=== PATIENT | female | born 1970 | race Caucasian/White ===

== ENCOUNTER → 2019-11-25 11:54 | Outpatient (BNVA) | payer OTHER, SELFPAY | PROVIDERS: Family Provider Nurse Practitioner; PCP Nurse Practitioner; Visit Provider Nurse Practitioner Family | DX: R05 Cough (principal); J20.9 Acute bronchitis, unspecified | CPT/HCPCS: 87804 ==

== ENCOUNTER 2020-04-28 16:06 | Observation (INO) | payer OTHER, SELFPAY ==
[2020-04-28] VITALS (8 sets, daily range): BP systolic 131–175; BP diastolic 70–108; PULSE 76–104; RESP 11–18; TEMP 36.8; O2SAT 94–97; BMI 37.1
--- NOTE | 2020-04-28 16:57 | XRR_ITS ---
PROCEDURE INFORMATION: Exam: XR Chest, 1 View Exam date and time: 04/28/2020 5:20 PM Age: 49 years old Clinical indication: Condition or disease; Other: HTN; Patient HX: Dizzy weak TECHNIQUE: Imaging protocol: XR of the chest Views: 1 view. COMPARISON: CR Chest 1 [place] [id number] 03/31/2017 5:59 PM FINDINGS: Lungs: Unremarkable. No consolidation. Pleural space: Unremarkable. No pleural effusion. No pneumothorax. Heart/Mediastinum: Unremarkable. No cardiomegaly. Bones/joints: Unremarkable. XR/XR chest 1V portable [id number] IMPRESSION: No acute findings.
--- NOTE | 2020-04-28 16:57 | CTR_ITS ---
PROCEDURE INFORMATION: Exam: CT Head Without Contrast Exam date and time: 04/28/2020 4:58 PM Age: 49 years old Clinical indication: Dizziness and numbness / parasthesia; Right; Additional info: Symptoms of acute stroke TECHNIQUE: Imaging protocol: Computed tomography of the head without contrast. Radiation optimization: All CT scans at this facility use at least one of these dose optimization techniques: automated exposure control; mA and/or kV adjustment per patient size (includes targeted exams where dose is matched to clinical indication); or iterative reconstruction. Other technique: STROKE PROTOCOL was implemented. COMPARISON: CT head wo con* [id number] 05/07/2018 3:40 PM RADIATION DOSE METRICS: Total DLP (mGy-cm): 900.69 FINDINGS: Brain: Normal. No hemorrhage. Unremarkable white matter. No mass effect. Ventricles: Normal. No ventriculomegaly. Bones/joints: Unremarkable. No acute fracture. Sinuses: Visualized sinuses are unremarkable. No fluid levels. Mastoid air cells: Visualized mastoid air cells are well aerated. Soft tissues: Unremarkable. CT/CT head wo con* [id number] IMPRESSION: No acute intracranial abnormality. ASSESSMENT: ASPECTS ([place] Stroke Program Early CT Score) is 10. Radiation Dose CTDIVOL = (mGy): DLP = 900.69 (mGy-cm)
--- NOTE | 2020-04-28 16:57 | ECG_ITS ---
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 Measurements Intervals [place] Rate: 100 P: 26 OH: 140 QRS: 31 QRSD: 94 T: 48 QT: 353 QTc: 456 Interpretive Statements SINUS TACHYCARDIA ABNORMAL RHYTHM ECG Compared to ECG 04/01/2017 06:25:20 Sinus rhythm no longer present Electronically Signed On 04-28-2020 21:07:48 CDT by Halima Castro M.D. [email or web address] [email or web address] [email or web address] [email or web address] [email or web address] Oncology/store/NU/[id number] f
--- NOTE | 2020-04-28 16:59 | W.ED.NEUROSD ---
HPI - Neuro Symptoms/Deficit General: Chief Complaint: Neuro Symptoms/Deficit Stated Complaint: high bp Time Seen by Provider: 04/28/20 16:25 Source: patient Mode of arrival: ambulatory Limitations: no limitations History of Present Illness: HPI Narrative: 49-year-old female has a history of high blood pressure. She states 2 hours ago started having some blurry vision and feeling dizzy when she walked. She states she had a blood pressure checked and it was quite high. She denies any one-sided weakness. Patient is able ambulate here but states that she gets up and walks she does feel dizzy. She has no physical difficulties here. Denies any worsening. Factor Onset (ago): hour(s) Associated symptoms: Reports vertigo; Deny chest pain, nausea or vomiting Review of Systems Const: Denies: fever(s), chills, body aches or change in appetite Eyes: Denies: blurry vision or eye discomfort ENMT: Denies: throat pain or dental pain Card: Denies: chest pain Resp: Denies: dyspnea GI: Denies: abdominal pain, nausea, vomiting or diarrhea : Denies: dysuria Musc: Denies: neck pain or back pain Skin/Breast: Denies: rash Neuro: Reports: dizziness and vertigo Psych: Denies: depression Cecil/Lymph: Denies: easy bruising All/Imm: Denies: urticaria PFS ED PFSH: Social History (Updated 11/25/19 @ 11:49 by Lizbeth Ribeiro LPN) Smoking and tobacco status: current every day smoker cigarettes Packs smoked per day: 0.5 Alcohol intake: never Lives independently: Yes Household members: spouse Housing: House Marital status: History of recent travel: No Physical Exam Const: COMMON NORMALS: no acute distress, patient oriented x3 and healthy appearing HENMT: COMMON NORMALS: normocephalic and atraumatic HEAD & SCALP: normocephalic and atraumatic Eye: COMMON NORMALS: Equal, round and reactive pupils present and EOMs intact bilaterally PUPIL: Yes Equal, round and reactive pupils present Neck/C-Spine: COMMON NORMALS: full ROM and supple Chest: COMMONS NORMALS: normal inspection of the chest and normal palpation of entire chest wall Resp: COMMON NORMALS: normal respiratory effort, No retractions, No use of accessory muscles and clear to auscultation bilaterally AUSCULTATION: clear to auscultation bilaterally Cardio: COMMON NORMALS: regular rate, regular rhythm and No murmurs present (Cardio) RATE: regular rate RHYTHM: regular rhythm GI: COMMON NORMALS: Normal to inspection, nondistended, normoactive bowel sounds present, Soft to palpation, non-tender and no masses PALPATION: Yes Soft to palpation Extremity: COMMON NORMALS: normal to inspection and full ROM Neuro: COMMON NORMALS: patient oriented x3, moves all extremities and no focal motor deficits Psych: COMMON NORMALS: mental status grossly normal, Normal thought process present and cooperative THOUGHT PROCESS: Normal thought process present Skin: COMMON NORMALS: no rashes or lesions noted and no wounds GENERAL SKIN EXAM: no rashes or lesions noted Course Vital Signs: Vital signs: Vital Signs Temperature 98.2 F 04/28/20 16:49 Pulse Rate 102 H 04/28/20 16:49 Respiratory Rate 14 04/28/20 16:49 Blood Pressure 175/108 04/28/20 16:49 Pulse Oximetry 97 04/28/20 16:49 MDM - Neuro Symptoms/Deficit MDM Narrative: Medical decision making narrative: Patient presents with a likely TIA. Patient symptoms now have completely resolved. Patient was evaluated by Dr. Albert who feels she is not a TPA candidate. He recommended admission for TIA work-up. I spoke to Dr. kuo and will admit. Patient currently has no complaints and her blood pressure is 146/99. Lab Data: Labs: Lab Results 04/28/20 04/28/20 04/28/20 Range/Units 17:09 17:14 17:14 WBC 9.9 (4.0-10.0) 10^3/ uL RBC 5.69 H (4.1-5.3) 10^6/u L Hgb 13.9 (11.5-15.3) g/dL Hct 45.6 (37.0-47.0) % MCV 80.1 L (81-99) fL MCH 24.4 L (28.0-34.0) pg MCHC 30.5 (30.0-36.0) g/dL RDW 15.8 H (12.1-15.1) % Plt Count 307 (130-400) 10^3/c mm MPV 10.7 H (7.4-10.4) fL Neut % (Auto) 69.6 % Lymph % (Auto) 22.8 % Treasure % (Auto) 4.2 % Eos % (Auto) 2.0 % Baso % (Auto) 0.9 % Neut # (Auto) 6.85 (1.8-7.7) 10^3/u L Lymph # (Auto) 2.3 (0.8-4.8) 10^3/u L Treasure # (Auto) 0.4 (0.2-0.9) 10^3/u L Eos # (Auto) 0.2 (0.0-0.8) 10^3/u L Baso # (Auto) 0.1 (0.0-0.1) 10^3/u L Nucleated RBC % (a uto) 0 % Nucleated RBCs # 0.0 /100WBC PT 12.00 L (12.1-14.9) SECO NDS INR 0.86 (0.8-1.2) APTT 30.8 (23.9-36.7) SECO NDS Sodium (136-145) mmol/L Potassium (3.5-5.1) mmol/L Chloride (98-107) mmol/L Carbon Dioxide (22-29) mmol/L Anion Gap (5-19) BUN (6-20) mg/dL Creatinine (0.5-0.9) mg/dL GFR Calculation (90-130) mL/min Glucose (65-115) mg/dL POC Glucose 107 (70-110) mg/dL Calculated Osmolal ity (285-295) mOsm/k g Calcium (8.5-10.5) mg/dL Total Bilirubin (0.15-1.2) mg/dL AST (0-32) U/L ALT (0-33) U/L Alkaline Phosphata se (35-105) IU/L Total Protein (6.6-8.7) g/dL Albumin (3.5-5.2) g/dL Globulin (1.3-4.6) g/dL 04/28/20 Range/Units 17:14 WBC (4.0-10.0) 10^3/ uL RBC (4.1-5.3) 10^6/u L Hgb (11.5-15.3) g/dL Hct (37.0-47.0) % MCV (81-99) fL MCH (28.0-34.0) pg MCHC (30.0-36.0) g/dL RDW (12.1-15.1) % Plt Count (130-400) 10^3/c mm MPV (7.4-10.4) fL Neut % (Auto) % Lymph % (Auto) % Treasure % (Auto) % Eos % (Auto) % Baso % (Auto) % Neut # (Auto) (1.8-7.7) 10^3/u L Lymph # (Auto) (0.8-4.8) 10^3/u L Treasure # (Auto) (0.2-0.9) 10^3/u L Eos # (Auto) (0.0-0.8) 10^3/u L Baso # (Auto) (0.0-0.1) 10^3/u L Nucleated RBC % (a uto) % Nucleated RBCs # /100WBC PT (12.1-14.9) SECO NDS INR (0.8-1.2) APTT (23.9-36.7) SECO NDS Sodium 138 (136-145) mmol/L Potassium 3.9 (3.5-5.1) mmol/L Chloride 102 (98-107) mmol/L Carbon Dioxide 24 (22-29) mmol/L Anion Gap 15.9 (5-19) BUN 14 (6-20) mg/dL Creatinine 0.7 (0.5-0.9) mg/dL GFR Calculation 89.3 L (90-130) mL/min Glucose 102 (65-115) mg/dL POC Glucose (70-110) mg/dL Calculated Osmolal ity 282 L (285-295) mOsm/k g Calcium 9.6 (8.5-10.5) mg/dL Total Bilirubin 0.2 (0.15-1.2) mg/dL AST 14 (0-32) U/L ALT 21 (0-33) U/L Alkaline Phosphata se 115 H (35-105) IU/L Total Protein 7.9 (6.6-8.7) g/dL Albumin 4.7 (3.5-5.2) g/dL Globulin 3.2 (1.3-4.6) g/dL Imaging Data^: CT Head: Radiologist's impression: [address] [place] [address] CT Scan Report Signed Patient: Jeannette Dior Unit #: [id number] : 1970 Age/Sex: 49 / F ADM Date: 04/28/20 Loc: ER Room/Bed: Attending Dr: Ordering Provider/Ordering MD: Jarred Goldstein MD Date of Service: 04/28/20 Procedure(s): CT head wo con* [id number] Accession Number(s): [id number] Report Number: [id number] PROCEDURE INFORMATION: Exam: CT Head Without Contrast Exam date and time: 04/28/2020 4:58 PM Age: 49 years old Clinical indication: Dizziness and numbness / parasthesia; Right; Additional info: Symptoms of acute stroke TECHNIQUE: Imaging protocol: Computed tomography of the head without contrast. Radiation optimization: All CT scans at this facility use at least one of these dose optimization techniques: automated exposure control; mA and/or kV adjustment per patient size (includes targeted exams where dose is matched to clinical indication); or iterative reconstruction. Other technique: STROKE PROTOCOL was implemented. COMPARISON: CT head wo con* [id number] 05/07/2018 3:40 PM RADIATION DOSE METRICS: Total DLP (mGy-cm): 900.69 FINDINGS: Brain: Normal. No hemorrhage. Unremarkable white matter. No mass effect. Ventricles: Normal. No ventriculomegaly. Bones/joints: Unremarkable. No acute fracture. Sinuses: Visualized sinuses are unremarkable. No fluid levels. Mastoid air cells: Visualized mastoid air cells are well aerated. Soft tissues: Unremarkable. CT/CT head wo con* [id number] IMPRESSION: No acute intracranial abnormality. EKG Data^: EKG 1: Attestation: I personally reviewed and interpreted this EKG as follows: EKG interpretation date: 04/28/20 EKG interpretation time: 17:12 Interpretation: sinus tach hr [address] or t wave abnormalities qrs 94 qtc 410 Discharge Plan Discharge Patient Disposition: Admitted As Inpatient Admit Provider: Thi Domingo Clinical Impression: Transient cerebral ischemia Qualifiers: Transient cerebral ischemia type: unspecified Qualified Code(s): G45.9 - Transient cerebral ischemic attack, unspecified Hypertension Qualifiers: Hypertension type: unspecified Qualified Code(s): I10 - Essential (primary) hypertension Condition: Stable Referrals: Tae Bryant FNP-C [Primary Care Provider] - Coding Level of Care Code ED Scout Sniper for [facility] Fwd Exam Comprehensive
[2020-04-28 17:22] LABS: Glucose Point of Care 107 mg/dL (70-110)
[2020-04-28 17:29] LABS: Basophils # 0.1 10^3/uL (0.0-0.1); Basophils % 0.9 %; Eosinophils # 0.2 10^3/uL (0.0-0.8); Hematocrit 45.6 % (37.0-47.0); Hemoglobin 13.9 g/dL (11.5-15.3); Lymphocytes # 2.3 10^3/uL (0.8-4.8); Lymphocytes % 22.8 %; Mean Corpuscular HGB Conc 30.5 g/dL (30.0-36.0); Mean Corpuscular Hemoglobin 24.4 pg (28.0-34.0); Mean Corpuscular Volume 80.1 fL (81-99); Mean Platelet Volume 10.7 fL (7.4-10.4); Monocytes # 0.4 10^3/uL (0.2-0.9); Monocytes % 4.2 %; Neutrophils # 6.85 10^3/uL (1.8-7.7); Neutrophils % 69.6 %; Nucleated Red Blood Cells % 0 %; Platelet Count 307 10^3/cmm (130-400); Red Blood Count 5.69 10^6/uL (4.1-5.3); Red Cell Distribution Width 15.8 % (12.1-15.1); White Blood Count 9.9 10^3/uL (4.0-10.0)
--- NOTE | 2020-04-28 17:29 | PM.SAN ---
Stroke Alert Activation ED Arrival Date: 04/28/20 Stroke Alert Activation Date: 04/28/20 Stroke MD @ Bedside Date: 04/28/20 Stroke MD @ Bedside Time: 18:15 NIH Stroke Scale Time: 18:20 NIH Stroke Scale Score: NIH Stroke Scale Score: 0 Stroke Alert Data/Treatment CT Impression: unremarkable tPA Contraindication: tPA Contraindication: Treatment not indcated (exam normal) Other Information: She had acute onset of visual blurring, hypertension and vertigo about 2 hours ago which resolved. This may have represented a posterior circulation TIA. Her symptoms have essentially totally resolved and her examination is normal at this time. She is not a candidate for thrombolytics given her normal exam and essentially resolved symptoms. She feels a 'little blurry' and a little off balance. but is able to ambulate normally and is not ataxic. I have recommended observation and a TIA workup. She presently takes aspirin (excedrin) daily for chronic headache. She should start statin with goal LDL <70, have a vascular workup with MRI, echo and doppler, A1c, and Lipid profile. She has high probability for MARCIANO and should eventually have a sleep study. She may benefit from outpatient headache consultation and preventative treatment. I have counselled her regarding smoking cessation and blood pressure monitoring. Critical Care Time Critical Care Time: less than 30 mins Coding Level of Care Code Acute Assembly Stock Supervisor for Corrine Moore
[2020-04-28 17:38] LABS: INR 0.86 (0.8-1.2)
[2020-04-28 17:39] LABS: Partial Thromboplastin Time 30.8 SECONDS (23.9-36.7)
[2020-04-28 17:44] LABS: Alanine Aminotransferase 21 U/L (0-33); Albumin Level 4.7 g/dL (3.5-5.2); Alkaline Phosphatase 115 IU/L (35-105); Anion Gap 15.9 (5-19); Aspartate Amino Transferase 14 U/L (0-32); Blood Urea Nitrogen 14 mg/dL (6-20); Calcium 9.6 mg/dL (8.5-10.5); Carbon Dioxide 24 mmol/L (22-29); Chloride 102 mmol/L (98-107); Globulin 3.2 g/dL (1.3-4.6); Glomerular Filtration Rate 89.3 mL/min (90-130); Glucose 102 mg/dL (65-115); Osmolality Calculated 282 mOsm/kg (285-295); Potassium 3.9 mmol/L (3.5-5.1); Sodium 138 mmol/L (136-145); Total Bilirubin 0.2 mg/dL (0.15-1.2); Total Protein 7.9 g/dL (6.6-8.7)
--- NOTE | 2020-04-28 18:41 | PM.HP ---
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 Her NIH score was 0 at the time of presentation to the ED. She was evaluated by neurologist Dr. Albert urgently in the ED. Not felt to be a candidate for TPA at this present time. She is currently being admitted to observation for a TIA work-up. She denies any current complaints at this time. Denies any history of fever cough shortness of breath or chest pain. Review of Systems General: Reports: 10 or more systems reviewed and unremarkable except in HPI and below Const: Denies: fever(s), chills or body aches Eyes: Denies: change in vision, blurry vision or photophobia ENMT: Reports: hoarseness; Denies: throat pain, enlarged tonsils, odynophagia or nasal congestion Card: Denies: chest pain, palpitations, irregular heart rhythm, edema, swelling of feet/ankles, lightheadedness, pre-syncope, dyspnea on exertion or orthopnea Resp: Denies: dyspnea, productive cough, non-productive cough, wheezing, stridor, pain on inspiration, change in phlegm color, hemoptysis or chest congestion GI: Denies: abdominal pain, nausea, vomiting, hematemesis, coffee ground emesis, dysphagia, heartburn, diarrhea, constipation, GI cramping, change in stool character, hematochezia or melena : Denies: flank pain, difficulty voiding, dysuria, urinary frequency, urinary urgency, urinary hesitancy or hematuria Musc: Denies: neck pain, back pain, extremity pain, joint swelling, joint warmth or deformity Neuro: Denies: headache(s), numbness in extremities, weakness in extremities, sensory changes, difficulty walking, frequent falls, dizziness, vertigo, behavioral changes, Slurred speech present or seizure-like activity Psych: Denies: anxiety, depression, suicidal ideation or homicidal ideation Endo: Denies: polyuria, polydipsia, tired all the time, cold intolerance or hot flashes Cecil/Lymph: Denies: easy bruising or easy bleeding Medications/Allergies Home Medications Medication Instructions Recorded Confirmed Last Taken Type No Known Home Medications 04/28/20 04/28/20 Unknown History cerdnwr-atpljedzwlfha-iytrimgw 2 tab PO Q4H PRN 04/28/20 04/28/20 04/28/20 History [Excedrin Migraine] Allergies Allergy/AdvReac Type Severity Reaction Status Date / Time Penicillins Allergy Unknown Verified 04/28/20 17:21 PFSH Acute PFSH: Social History Smoking and tobacco status: current every day smoker cigarettes Packs smoked per day: 0.5 Alcohol intake: never Lives independently: Yes Household members: spouse Housing: House Marital status: History of recent travel: No Vitals/I&O/Wt Last Vital Signs Temp 98.2 F 04/28/20 16:49 Pulse 102 H 04/28/20 16:49 Resp 14 04/28/20 16:49 BP 175/108 04/28/20 16:49 Pulse Ox 97 04/28/20 16:49 Weight last 48 hrs Weight 101.333 kg Physical Exam Narrative: EXAM NARRATIVE: GEN: Awake, alert and oriented, no acute distress CVS: S1S2 N RS: CTA B/L Abd: Soft, nt/nd , bs+ DEVELOPMENT SPEC: no focal neuro deficits at this time Data : 04/28/20 17:14 04/28/20 17:14 A&P Assessment and plan (1) Transient cerebral ischemia: Status: Acute Qualifiers: Transient cerebral ischemia type: unspecified Qualified Code(s): G45.9 - Transient cerebral ischemic attack, unspecified (2) Hypertension: Status: Acute Qualifiers: Hypertension type: unspecified Qualified Code(s): I10 - Essential (primary) hypertension Additional A&P Information Admit to [facility] for close observation on telemetry. CT head without any acute intracranial abnormality. We will initiate a TIA work-up. Check HbA1c and lipid panel MRI of the head in the morning. Echocardiogram and carotid Doppler. Alternate cause of her symptoms may have been migraine for which patient takes Fioricet at home. Telemetry monitoring over the next 24 hours. Currently blood pressure noted to be 175 systolic. Reports taking no medications at home for the hypertension. Will initiate amlodipine if blood pressure consistently above SBP of 180. For now allow some degree of permissive hypertension. Full code DVT prophylaxis: SCDs. Attestations Medical Necessity Statement*: Admit to observation, anticipate less than 2 midnight admission for work-up of TIA. Coding Level of Care Code Acute Printing Gray Cloth Tender for Corrine Moore Diagnoses Transient cerebral ischemia G45.9 Transient cerebral ischemia type: unspecified Hypertension I10 Hypertension type: unspecified
[2020-04-28] MEDS: ondansetron 2 mg/ML SDV 2 mL 4 MG IVP (20:07)
[2020-04-28] MEDS: morphine 4 mg/mL SDV 1 mL 1 MG IVP (20:07)
[2020-04-28 20:11] LABS: Estmated Average Glucose 131; Hemoglobin A1C 6.2 % (4.0-6.0)
[2020-04-28 20:36] LABS: Add Urine Microscopic? NO
[2020-04-28 20:48] LABS: Bilirubin Urine Neg (NEGATIVE); Blood Urine Neg (Negative); Glucose Urine UA Norm (Normal); Ketones Urine Negative (Negative); Leukocyte Esterase Urine Negative (Negative); Nitrate Urine Negative (Negative); Protein Urine Neg (Negative); Urine Appearance Clear (CLEAR); Urine Color Straw (Yellow); Urobilinogen Urine Norm (Negative); pH Urine 5 (5-7)
[2020-04-28 20:54] LABS: Amphetamines Screen Urine Negative (Negative); Barbiturates Screen Urine Negative (Negative); Benzodiazepines Screen Urine Negative (Negative); Cocaine Screen Urine Negative (Negative); Opiate Screen Urine Negative (Negative); PCP Screen Urine Negative (Negative); THC Screen Urine Negative (Negative)
[2020-04-28 21:15] LABS: Glucose Point of Care 119 mg/dL (70-110)
[2020-04-28 22:38] LABS: Cholesterol 259 mg/dL (0-200); HDL Cholesterol 37 mg/dL (60-100); LDL Cholesterol Calculated 176 mg/dL (50-129); LDL HDL Ratio 4.76 RATIO (0.00-3.22); Thyroid Stimulating Hormone 1.04 uIU/mL (0.27-4.20); Triglycerides 232 mg/dL (0-150)
[2020-04-29] VITALS (9 sets, daily range): BP systolic 108–140; BP diastolic 68–98; PULSE 71–100; RESP 16–20; TEMP 36.4–36.7; O2SAT 93–97
[2020-04-29] MEDS: acetaminophen 325 mg Tablet 650 MG PO (00:16)
--- NOTE | 2020-04-29 07:00 | USCV_ITS ---
Jeannette Dior Age: 49 Gender: F : 1970 Exam Date: 04/29/2020 06:15 Ordering Phys: Thi Domingo MD Technologist: Crystal Bacon Exam Location: [facility] [place] Indication: TIA Risk Factors: Previous Vascular Surgery: Right Brachial BP: / Left Brachial BP: / Right Left Velocity (cm/s) Spectral Plaque Velocity (cm/s) Spectral Plaque Syst/Diast Broadening Syst/Diast Broadening 91.50/ 30.90 Prox CCA 53.20 / 15.30 50.50/ 19.40 Mid CCA 65.30 / 29.80 41.90/ 15.50 Distal CCA 54.00 / 19.30 42.70/ 15.70 Prox ICA 45.20 / 20.10 43.50/ 20.00 Mid ICA 56.40 / 22.00 44.40/ 24.40 Distal ICA 83.60 / 24.00 93.20 ECA 70.40 0.88 ICA/CCA 1.28 Retrograde Vertebral Antegrade 22.60/ 6.80 cm/s 18.50/ 11.10 cm/s Tri Subclavian Tri 30.60 69.00 FINDINGS Comparison: none available. No significant elevation of systolic or diastolic velocities. Waveforms are normal. No significant amount of calcified plaque or intimal thickening identified. CONCLUSIONS Normal carotid doppler ultrasound. Suspect right vertebral artery retrograde flow. Dr. Gia Neri DO (Electronically Signed) Final Date: 29 April 2020 08:24 S
--- NOTE | 2020-04-29 07:00 | USCV_ITS ---
Jeannette Dior Age: 49 Gender: F : 1970 Exam Date: 04/29/2020 06:04 Ordering Phys: Thi Domingo MD Technologist: Crystal Bacon Exam Location: [facility] – [place] Indication: TIA BP: 108 / 68 HR: 69 Rhythm: Sinus Technical Quality: Suboptimal MEASUREMENTS (Male / Female) Normal Values 2D ECHO LV Diastolic Diameter PLAX 4.4 cm 4.2 - 5.9 / 3.9 - 5.3 cm LV Systolic Diameter PLAX 2.8 cm LV Chamber Size 3.8 cm IVS Diastolic Thickness 1.2 cm 0.6 - 1.0 / 0.6 - 0.9 cm IVS Systolic Thickness 1.3 cm LVPW Diastolic Thickness 1.6 cm 0.6 - 1.0 / 0.6 - 0.9 cm LVPW Systolic Thickness 1.9 cm RV Chamber Size 2.8 cm LVOT Diameter 2.0 cm LV Ejection Fraction 2D Teich 65.9 % LV Ejection Fraction MOD 2C 50.5 % LV Ejection Fraction 2C AL 49.8 % LA Diameter 3.3 cm LA Width 2.7 cm LA Height 3.3 cm RA Width 2.9 cm RA Height 4.0 cm Aorta at Sinotubular Diameter 2.7 cm M-MODE LV Diastolic Diameter MM 5.9 cm 4.2 - 5.9 / 3.9 - 5.3 cm LV Systolic Diameter MM 4.8 cm LV Ejection Fraction MM Teich 36.2 % IVS Diastolic Thickness MM 1.1 cm 0.6 - 1.0 / 0.6 - 0.9 cm IVS Systolic Thickness MM 1.2 cm LVPW Diastolic Thickness MM 0.8 cm 0.6 - 1.0 / 0.6 - 0.9 cm LVPW Systolic Thickness MM 1.1 cm Aortic Annulus Diameter 3.2 cm LA Ao Ratio MM 1.1 MV E Point Septal Separation 0.7 cm DOPPLER AV Peak Velocity 147.0 cm/s LVOT Peak Velocity 93.0 cm/s AV Area Cont Eq vti 1.7 cm squared AV Area Cont Eq pk 2.1 cm squared MV Area PHT 4.2 cm squared Mitral E to A Ratio 1.2 MV E' Velocity 11.0 cm/s Mitral E to MV E' Ratio 8.8 Mitral E to LV E' Lateral Ratio 8.7 Mitral E to LV E' Septal Ratio 8.9 TR Peak Velocity 121.0 cm/s TR Peak Gradient 5.9 mmHg TV Peak E Velocity 67.0 cm/s Right Atrial Pressure 3.0 mmHg Pulmonary Artery Systolic Pressu 8.9 mmHg FINDINGS Left Ventricle Normal left ventricular size, systolic function and wall thickness, with no regional wall motion abnormalities. Left ventricular ejection fraction is estimated at 60%. Normal diastolic function. Right Ventricle Normal right ventricular size and systolic function. Right ventricular systolic pressure 8.9 mmHg. Right Atrium Normal right atrial size. Left Atrium Normal left atrial size. Mitral Valve Structurally normal mitral valve. No mitral valve stenosis. Trace mitral valve regurgitation. Aortic Valve Structurally normal trileaflet aortic valve. No aortic valve stenosis. No aortic valve regurgitation. Tricuspid Valve Structurally normal tricuspid valve. Pulmonic Valve Pulmonic valve not well visualized. Pericardium No pericardial effusion. Aorta Normal sized aortic root. CONCLUSIONS 1. Normal left ventricular size, systolic function and wall thickness, with no regional wall motion abnormalities. Left ventricular ejection fraction is estimated at 60%. Normal diastolic function. 2. Normal right ventricular size and systolic function. 3. No significant valvular abnormality. 4. No prior similar studies to compare. Cori Duron MD (Electronically Signed) Final Date: 29 April 2020 21:37 S
--- NOTE | 2020-04-29 10:15 | MR_ITS ---
WS: [id number] MRI BRAIN WITHOUT CONTRAST HISTORY: tia COMPARISON: 04/28/2020 TECHNIQUE: Diffusion imaging, multiplanar T1, T2 and FLAIR imaging obtained. No evidence for acute infarct or hemorrhage. Sanchez-white matter differentiation is normal. No remote or acute infarcts are volume loss. Ventricles and extra-axial spaces are normal. No inferior displacement of cerebellar tonsils. The sella turcica and pituitary gland are unremarkabl e. Posterior fossa is also unremarkable. Dural venous sinuses and pokagon of [place] demonstrate no abnormality on this unenhanced studies. Paranasal sinuses: Small amount of fluid layering posteriorly in the sphenoid sinus. Mastoid air cells: Normal. Calvarium and scalp: Intact. MR/MR head wo con* [id number] IMPRESSION: 1. No acute infarct or hemorrhage. 2. Mild sphenoid sinusitis.
--- NOTE | 2020-04-29 14:59 | PM.DCS ---
Discharge Providers Date of Admission: 04/28/20 17:49 Date of Discharge: April 29, 2020 Attending Provider at Admission: Thi Domingo MD Attending Provider at Discharge: Thi Domingo MD Primary Care Provider: ABRIL Gibbs Diagnoses at Discharge Discharge Diagnosis (1) Transient cerebral ischemia: Status: Acute Qualifiers: Transient cerebral ischemia type: unspecified Qualified Code(s): G45.9 - Transient cerebral ischemic attack, unspecified (2) Hypertension: Status: Acute Qualifiers: Hypertension type: unspecified Qualified Code(s): I10 - Essential (primary) hypertension Reason for Visit Reason for Visit: high bp Hospital Course Discharge Summary: Jeannette Dior is a 49 year old female with PMH chronic headaches, chronic smoker presenting with acute onset of visual blurring, hypertension and vertigo and R sided weakness 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 Her NIH score was 0 at the time of presentation to the ED. She was evaluated by neurologist Dr. Albert urgently in the ED. Not felt to be a candidate for TPA . She was admitted to observation for a TIA work-up. Her MRI and CT head did not show any acute stroke. carotid doppler did not show stenosis. Echocardiogram remains pending at time of exam, may be followed as outpatient. Hba1c check revealed preDM at 6.2. Lipid pane was deranged, with LDL >170. patient is being started on ASA, statins given these results and possibility of TIA. She is instructed to maintain a BP chart over the next week and take it to PCP on next appointment. Start amlodipine for any SBP >160. Lifestyle modification suggested for preDM, also smoking cessation counselling provided. 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 deficits Discharge Data Data Completed and Pending: Completed Studies During Hospitalization Category Date Time Status CT head wo con* [id number] Stat Cat Scan 04/28/20 16:57 Completed XR chest 1V francisca ble [id number] Stat Exams 04/28/20 16:57 Completed MR head wo con* [id number] Routine MRI 04/29/20 10:15 Completed CV carotid duplex BI* [id number] Routine Ultrasound 04/29/20 07:00 Completed Pending at discharge Category Date Time Status CV echo complete* [id number] Routine Ultrasound 04/29/20 07:00 Taken Labs from last 24 hours 04/28/20 04/28/20 04/28/20 21:12 18:02 18:02 WBC RBC Hgb Hct MCV MCH MCHC RDW Plt Count MPV Neut % (Auto) Lymph % (Auto) [place] % (Auto) Eos % (Auto) Baso % (Auto) Neut # (Auto) Lymph # (Auto) [place] # (Auto) Eos # (Auto) Baso # (Auto) Nucleated RBC % (a uto) Nucleated RBCs # PT INR APTT Sodium Potassium Chloride Carbon Dioxide Anion Gap BUN Creatinine GFR Calculation Glucose POC Glucose 119 Estimat Average Gl ucose Hemoglobin A1c Calculated Osmolal ity Calcium Total Bilirubin AST ALT Alkaline Phosphata se Total Protein Albumin Globulin Triglycerides Cholesterol LDL Cholesterol, C alc HDL Cholesterol LDL/HDL Ratio Cholesterol/HDL Ra melissa TSH Urine Color Straw Urine Appearance Clear Urine pH 5 Ur Specific Gravit y 1.010 Urine Protein Neg Urine Glucose (UA) Norm Urine Ketones Negative Urine Blood Neg Urine Nitrate Negative Urine Bilirubin Neg Urine Urobilinogen Norm Ur Leukocyte [place] ase Negative Urine Opiates Scre en Negative Ur Barbiturates Sc reen Negative Ur Phencyclidine S crn Negative Ur Amphetamines Sc reen Negative U Benzodiazepines Scrn Negative Urine Cocaine Scre en Negative U Marijuana (THC) Screen Negative 04/28/20 04/28/20 04/28/20 17:14 17:14 17:14 WBC RBC Hgb Hct MCV MCH MCHC RDW Plt Count MPV Neut % (Auto) Lymph % (Auto) [place] % (Auto) Eos % (Auto) Baso % (Auto) Neut # (Auto) Lymph # (Auto) [place] # (Auto) Eos # (Auto) Baso # (Auto) Nucleated RBC % (a uto) Nucleated RBCs # PT INR APTT Sodium 138 Potassium 3.9 Chloride 102 Carbon Dioxide 24 Anion Gap 15.9 BUN 14 Creatinine 0.7 GFR Calculation 89.3 L Glucose 102 POC Glucose Estimat Average Gl ucose 131 Hemoglobin A1c 6.2 H Calculated Osmolal ity 282 L Calcium 9.6 Total Bilirubin 0.2 AST 14 ALT 21 Alkaline Phosphata se 115 H Total Protein 7.9 Albumin 4.7 Globulin 3.2 Triglycerides 232 H Cholesterol 259 H LDL Cholesterol, C alc 176 H HDL Cholesterol 37 L LDL/HDL Ratio 4.76 H Cholesterol/HDL Ra melissa 7.00 H TSH 1.04 Urine Color Urine Appearance Urine pH Ur Specific Gravit y Urine Protein Urine Glucose (UA) Urine Ketones Urine Blood Urine Nitrate Urine Bilirubin Urine Urobilinogen Ur Leukocyte [place] ase Urine Opiates Scre en Ur Barbiturates Sc reen Ur Phencyclidine S crn Ur Amphetamines Sc reen U Benzodiazepines Scrn Urine Cocaine Scre en U Marijuana (THC) Screen 04/28/20 04/28/20 04/28/20 17:14 17:14 17:09 WBC 9.9 RBC 5.69 H Hgb 13.9 Hct 45.6 MCV 80.1 L MCH 24.4 L MCHC 30.5 RDW 15.8 H Plt Count 307 MPV 10.7 H Neut % (Auto) 69.6 Lymph % (Auto) 22.8 [place] % (Auto) 4.2 Eos % (Auto) 2.0 Baso % (Auto) 0.9 Neut # (Auto) 6.85 Lymph # (Auto) 2.3 [place] # (Auto) 0.4 Eos # (Auto) 0.2 Baso # (Auto) 0.1 Nucleated RBC % (a uto) 0 Nucleated RBCs # 0.0 PT 12.00 L INR 0.86 APTT 30.8 Sodium Potassium Chloride Carbon Dioxide Anion Gap BUN Creatinine GFR Calculation Glucose POC Glucose 107 Estimat Average Gl ucose Hemoglobin A1c Calculated Osmolal ity Calcium Total Bilirubin AST ALT Alkaline Phosphata se Total Protein Albumin Globulin Triglycerides Cholesterol LDL Cholesterol, C alc HDL Cholesterol LDL/HDL Ratio Cholesterol/HDL Ra melissa TSH Urine Color Urine Appearance Urine pH Ur Specific Gravit y Urine Protein Urine Glucose (UA) Urine Ketones Urine Blood Urine Nitrate Urine Bilirubin Urine Urobilinogen Ur Leukocyte [place] ase Urine Opiates Scre en Ur Barbiturates Sc reen Ur Phencyclidine S crn Ur Amphetamines Sc reen U Benzodiazepines Scrn Urine Cocaine Scre en U Marijuana (THC) Screen Vitals: Last Vital Signs Temp 98.0 F 04/29/20 12:07 Pulse 100 04/29/20 12:07 Resp 17 04/29/20 12:07 BP 140/98 04/29/20 12:07 Pulse Ox 97 04/29/20 12:07 Discharge Plan Discharge Patient Disposition: Home Condition: Stable Prescriptions: New Adult Low Dose Aspirin 81 mg tablet,delayed release (DR/EC) 81 mg PO DAILY Qty: 30 RF: 0 atorvastatin 40 mg tablet 40 mg PO DAILY Qty: 30 RF: 1 amlodipine 5 mg tablet 5 mg PO DAILY Qty: 30 RF: 0 Continued Excedrin Migraine 250-250-65 mg Tablet 2 tab PO Q4H PRN (Reason: Migraine Headache) RF: 0 Discharge Orders: Discharge Order (Routine); Ordered 04/29/20 Ordered By: Thi Domingo Referrals: Tae Bryant [employer]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 TAke this chart to your PCP on your next appointment. If top number is >160 at any time, start taking amlodipine 5mgpo qd Discharge Attestations Time Spent in Discharge Care*: greater than 30 min Specific Discharge Activities: Specific discharge activities: educating patient, documenting/other paperwork and evaluating patient/reviewing data Quality Metrics Clinical Quality Measures During this hospital stay, did patient experience: None Coding Level of Care Code Acute Manager [employer] for [employer]rine Moore Diagnoses Transient cerebral ischemia G45.9 Transient cerebral ischemia type: unspecified Hypertension I10 Hypertension type: unspecified
--- NOTE | 2020-04-29 18:56 | PC.RESP ---
SMOKING CESSATION INFORMATION SENT TO PATIENT.
== END 2020-04-29 16:20 | disposition home or self-care (01) ==
LOC: ER 17:51 → MEDSURG 18:01
PROVIDERS: Emergency Medicine; Admitting Provider Student in an Organized Health Care Education/Training Program; Family Provider Nurse Practitioner; PCP Nurse Practitioner; Visit Provider Student in an Organized Health Care Education/Training Program
DX: G45.9 Transient cerebral ischemic attack, unspecified (principal); I10 Essential (primary) hypertension; F17.210 Nicotine dependence, cigarettes, uncomplicated
CPT/HCPCS: 12345; 36416; 70450; 70551; 71045; 80053; 80061; 80306; 81003; 82962; 83036; 84443; 85025; 85610; 85730; 93005; 93306; 93880; 96374; 96375; 97110; 97161; 99283; 99285; G0378; J2270; J2405

== ENCOUNTER → 2020-05-04 11:49 | Outpatient (BNVA) | payer OTHER, SELFPAY | PROVIDERS: Family Provider Nurse Practitioner; PCP Nurse Practitioner; Visit Provider Nurse Practitioner | DX: R73.03 Prediabetes (principal); G43.709 Chronic migraine without aura, not intractable, without status migrainosus; I10 Essential (primary) hypertension; E78.2 Mixed hyperlipidemia; R30.9 Painful micturition, unspecified | CPT/HCPCS: 81003 ==

== ENCOUNTER → 2021-07-20 08:34 | Outpatient (BNVA) | payer OTHER, SELFPAY | PROVIDERS: Family Provider Nurse Practitioner; PCP Nurse Practitioner; Visit Provider Nurse Practitioner | DX: E11.65 Type 2 diabetes mellitus with hyperglycemia (principal); T63.301A Toxic effect of unspecified spider venom, accidental (unintentional), initial encounter; L03.90 Cellulitis, unspecified; L02.91 Cutaneous abscess, unspecified | CPT/HCPCS: 83036; 85025; 87070 ==

== ENCOUNTER 2021-10-05 13:07 | Outpatient (CLI) | payer OTHER, SELFPAY ==
[2021-10-05 13:13] VITALS: BP 141/95; PULSE 95; RESP 16; TEMP 36.6; O2SAT 96; BMI 37.8
[2021-10-05 14:11] VITALS: BP 119/78; PULSE 92; RESP 16; TEMP 36.6; O2SAT 95
[2021-10-05 15:11] VITALS: BP 134/93; PULSE 87; RESP 16; TEMP 36.6; O2SAT 96
== END 2021-10-05 13:08 | disposition home or self-care (01) ==
LOC: OPS 13:09
PROVIDERS: PCP Nurse Practitioner; Visit Provider Nurse Practitioner Family
DX: U07.1 COVID-19 (principal)
CPT/HCPCS: 96365

== ENCOUNTER 2022-09-03 13:02 | Outpatient (CLI) | payer OTHER, SELFPAY ==
--- NOTE | 2022-09-03 13:23 | MM_ITS ---
WS: [id number] Bilateral screening 3D tomosynthesis digital mammogram, 09/03/2022 Clinical Data: Z12.39 - Encounter for other screening for malignant neop... Comparison: 05/06/2012, 01/30/2008. Findings: The breast parenchymal pattern shows fibroglandular tissue. No spiculated masses or clustered calcifi cations are seen. There are no secondary signs of carcinoma. MM/[place] [id number] Impression: 1. Negative bilateral mammogram unchanged. 2. Recommend annual screening mammograms. BIRADS: 1-Negative FOLLOW UP: 1 Year Follow-up The CAD receiving checker was used.
== END 2022-09-03 13:03 | disposition home or self-care (01) ==
LOC: RAD 13:04
PROVIDERS: PCP Nurse Practitioner; Visit Provider Nurse Practitioner
DX: Z12.31 Encounter for screening mammogram for malignant neoplasm of breast (principal)
CPT/HCPCS: 77063; 77067

== ENCOUNTER → 2022-11-12 10:05 | Outpatient (BNVA) | payer OTHER, SELFPAY | PROVIDERS: PCP Nurse Practitioner; Visit Provider Nurse Practitioner | DX: I10 Essential (primary) hypertension (principal); G43.709 Chronic migraine without aura, not intractable, without status migrainosus; E11.65 Type 2 diabetes mellitus with hyperglycemia; F41.8 Other specified anxiety disorders | CPT/HCPCS: 80053; 80061; 81000; 83036; 84443 ==

== ENCOUNTER → 2023-05-30 08:30 | Outpatient (BNVA) | payer OTHER, SELFPAY | PROVIDERS: PCP Nurse Practitioner; Visit Provider Nurse Practitioner | DX: E11.65 Type 2 diabetes mellitus with hyperglycemia (principal); E78.2 Mixed hyperlipidemia | CPT/HCPCS: 80053; 80061; 82607; 83036 ==